=== PATIENT | female | born 1960 | race Caucasian/White ===

== ENCOUNTER → 2020-07-04 12:53 | Outpatient (CLI) | payer BC, SELFPAY ==
--- NOTE | ~2020-07-04 | US_ITS ---
EXAMINATION: US thyroid DATE: 07/04/2020 13:16 INDICATION: Nontoxic single thyroid nodule TECHNIQUE: Multiple ultrasound images of the thyroid were obtained. COMPARISON: None. FINDINGS: The right thyroid lobe measures 2.9 x 1.3 x 0.9 cm. The left thyroid lobe measures 4.0 x 1.5 x 1.1 c m. Thyroid isthmus measures 4 mm in thickness. Diffuse heterogeneous decreased echogenicity with coar sened echotexture and normal vascular flow on color Doppler throughout the thyroid. No discrete nodul es identified. IMPRESSION: 1. Small thyroid with coarsened echotexture which could represent sequela of chronic thyroiditis. No thyroid nodules. Reviewed, dictated and finalized at location . [facility] IMPRESSION: 1. Small thyroid with coarsened echotexture which could represent sequela of ch ronic thyroiditis. No thyroid nodules.
== END ==
PROVIDERS: Visit Provider Otolaryngology
DX: E04.1 Nontoxic single thyroid nodule (principal)
CPT/HCPCS: 76536

== ENCOUNTER 2020-09-24 11:24 | Emergency (ER) | payer BC, SELFPAY ==
--- NOTE | ~2020-09-24 | XR_ITS ---
XR femur LT min 2V DATE: 09/24/2020 12:32 INDICATION: Left thigh pain following a fall. Unable to straighten leg. TECHNIQUE: AP and lateral views of left femur COMPARISON: None FINDINGS: Osteitis pubis. Normal appearance of the sacroiliac joints. No fracture or dislocation, garcia scular necrosis or bone destruction of the left hip. No fracture, dislocation, periosteal reaction or bone destruction of the femur. IMPRESSION: Negative left femur Osteitis pubis Reviewed, dictated and finalized at location A. TIER
[2020-09-24 11:26] VITALS: BP 131/83; PULSE 76; RESP 18; TEMP 36.7; O2SAT 99
--- NOTE | 2020-09-24 11:42 | ED.LOWEXIN ---
HPI - Extremity Injury (Lower) General Chief Complaint: Extremity Injury, Lower Stated Complaint: left thigh pain s/p fall Time Seen by Provider: 09/24/20 11:26 Source: patient Mode of arrival: EMS Limitations: no limitations History of Present Illness HPI Narrative: This is a 60 year old female that presents to the ER for left leg pain after an injury today. Reports she slipped and fell, causing her to land in the splits . Reports since she has had pain in the left posterior thigh. Worse with movement and relieved with rest. Denies hitting her head, loss of consciousness, prodromal symptoms, other injuries, decreased range of motion, or numbness. Related Data Home Medications Medication Instructions Recorded Confirmed levothyroxine 75 mcg tablet 75 mcg PO DAILY 06/30/20 paroxetine HCl 20 mg tablet 20 mg PO DAILY 06/30/20 rosuvastatin 40 mg tablet 40 mg PO DAILY 06/30/20 Allergies Allergy/AdvReac Type Severity Reaction Status Date / Time No Known Allergies Allergy Verified 09/24/20 11:30 Review of Systems Review of Systems: Narrative: CONSTITUTIONAL: Denies fever MUSCULOSKELETAL: Reports myalgia. Denies back pain, joint pain NEUROLOGIC: Denies numbness, or weakness. All systems reviewed & are unremarkable except as noted in HPI and below PMFSH Past Medical History Medical History (Updated 09/24/20 @ 12:51 by Rani Bruno PA-C) History of gastroesophageal reflux (GERD) History of hyperlipidemia History of hypothyroidism Family History Family History (Updated 08/10/16 @ 13:55 by DOCTOR UNKNOWN) Mother Carcinoma of colon, Onset Age: 70 Family history of malignant neoplasm of breast in first degree relative Father Hypertension Other Family history of cardiovascular disease Social History Social History (Updated 06/30/20 @ 11:05 by Jaquelin Aguilar [facility]) Smoking status: Never smoker Second hand tobacco smoke exposure: No Alcohol intake: current Substance use: never Exam Narrative: Exam Narrative: GENERAL: Well-appearing, well-nourished, and in no acute distress. HEAD: Normocephalic, atraumatic. EYES: EOMI. ENT: Mucous membranes moist. Oropharynx without tonsillar hypertrophy exudate or other lesions. NECK: No midline spinal tenderness CHEST: Clear to auscultation. No respiratory distress. No wheezes rales or rhonchi HEART: Regular rate and rhythm. No murmur heard. Normal peripheral pulses. BACK: No midline spinal tenderness EXTREMITIES: Normal range of motion. No edema or obvious deformity. SKIN: Warm, dry, no rash. NEURO: No focal deficits. Alert and oriented x3. CN II-XII grossly intact PSYCH: Normal mood and affect Course Vital Signs Vital signs: Vital Signs Temperature 98.0 F 09/24/20 11:26 Pulse Rate 76 09/24/20 11:26 Respiratory Rate 18 09/24/20 11:26 Blood Pressure 131/83 09/24/20 11:26 Pulse Oximetry 99 09/24/20 11:26 Temperature 98.0 F 09/24/20 11:26 Pulse Rate 76 09/24/20 11:26 Respiratory Rate 18 09/24/20 11:26 Blood Pressure 131/83 09/24/20 11:26 Pulse Oximetry 99 09/24/20 11:26 MDM - Extremity Injury (Lower) MDM Narrative Medical decision making narrative: Patient presents the emergency department for left posterior thigh pain after a stretching injury from a fall today. Her x-ray is without acute osseous abnormalities. Patient was instructed on care of muscle strain. She is to follow-up with orthopedics. She was given warnings to return the ER Imaging Data Radiologist's impression: ITS Impressions Femur X-Ray 09/24/20 12:35 IMPRESSION: Negative left femur Osteitis pubis Critical Care Time Critical Care Time Critical Care Time: No Discharge Plan Discharge Clinical Impression: Strain of left hamstring muscle Qualifiers: Encounter type: initial encounter Qualified Code(s): S76.312A - Strain of muscle, fascia and tendon of the posterior muscle group at thigh level, left thigh
[2020-09-24] MEDS: KETOROLAC (*BKC) 60 MG/2 ML VIAL IM (11:50)
== END 2020-09-24 13:27 | disposition home or self-care (01) ==
PROVIDERS: Emergency Provider Emergency Medicine; Referring Provider Internal Medicine
DX: S76.312A Strain of muscle, fascia and tendon of the posterior muscle group at thigh level, left thigh, initial encounter (principal); K21.9 Gastro-esophageal reflux disease without esophagitis; E78.5 Hyperlipidemia, unspecified; E03.9 Hypothyroidism, unspecified; W01.0XXA Fall on same level from slipping, tripping and stumbling without subsequent striking against object, initial encounter
CPT/HCPCS: 73552; 96372; 99283; J1885

== ENCOUNTER 2021-11-24 08:51 | Outpatient (CLI) | payer BC, SELFPAY ==
--- NOTE | ~2021-11-24 | MM_ITS ---
EXAMINATION: MM screening emeka BI w rosemarie HISTORY: Screening TECHNIQUE: Craniocaudal and mediolateral oblique 3-D tomosynthesis images were obtained and synthetic 2-D images were generated. CAD analysis was submitted and interpreted. COMPARISON: Comparison to multiple prior studies sequentially, with oldest reviewed study dated 09/11. BREAST PARENCHYMAL COMPOSITION: There are scattered areas of fibroglandular density. FINDINGS: There is no evidence of suspicious mass, calcification, or architectural distortion to sugg est malignancy in either breast. There has been no suspicious interval change. IMPRESSION: 1. No mammographic evidence of malignancy. 2. Recommend routine screening mammography in one year. BI-RADS Category 1: Negative Reviewed, dictated and finalized at location A.
== END 2021-11-24 08:52 | disposition home or self-care (01) ==
PROVIDERS: Visit Provider Obstetrics & Gynecology
DX: Z12.31 Encounter for screening mammogram for malignant neoplasm of breast (principal)
CPT/HCPCS: 77063; 77067

== ENCOUNTER 2022-01-01 12:55 | Emergency (ER) | payer BC, SELFPAY ==
--- NOTE | 2022-01-01 13:05 | ED.URI ---
HPI - URI/Sore Throat General Chief Complaint: Upper Respiratory Infection Stated Complaint: COUGH/SORE THROAT/BODY ACHES/DRAINAGE Time Seen by Provider: 01/01/22 13:05 Source: patient and RN notes reviewed Mode of arrival: ambulatory Limitations: no limitations History of Present Illness HPI Narrative: 61-year-old female presented for complaint of cough, sore throat, sinus pressure and weakness, onset 2 days ago. She endorses headache started 2 nights ago. Denies wheezing, nausea, vomiting, diarrhea, fevers or chills. She is taking [id number] allergy relief medication for symptoms. She is vaccinated and boosted for COVID and flu. MD elicited complaint: cough and sore throat Related Data Home Medications Medication Instructions Recorded Confirmed levothyroxine 75 mcg tablet 75 mcg PO DAILY 06/30/20 paroxetine HCl 20 mg tablet 20 mg PO DAILY 06/30/20 rosuvastatin 40 mg tablet 40 mg PO DAILY 06/30/20 Allergies Allergy/AdvReac Type Severity Reaction Status Date / Time No Known Allergies Allergy Verified 09/24/20 11:30 Review of Systems Review of Systems: CONSTITUTIONAL: Endorses malaise EYES: Denies visual changes, redness, or discharge ENT: Reports rhinorrhea, congestion, sinus pain, sore throat CARDIOVASCULAR: Denies chest pain, palpitations, edema RESPIRATORY: Reports cough, post nasal drainage. Denies dyspnea GASTROINTESTINAL: Denies abdominal pain, nausea, vomiting, diarrhea SKIN: Denies rash or itching MUSCULOSKELETAL: Endorses myalgia NEUROLOGIC: Denies headache PMFSH Past Medical History Medical History History of gastroesophageal reflux (GERD) History of hyperlipidemia History of hypothyroidism Family History Family History Mother Carcinoma of colon, Onset Age: 70 Family history of malignant neoplasm of breast in first degree relative Father Hypertension Other Family history of cardiovascular disease Social History Social History Smoking status: Never smoker Second hand tobacco smoke exposure: No Alcohol intake: current Substance use: never Exam Narrative: GENERAL: Ill-appearing, nontoxic HEAD: Normocephalic EYES: conjunctivae clear ENT: Mucous membranes moist. TM pearly addison with dull light reflex bilaterally; no tragal tenderness. Oropharynx erythematous without lesions or exudate, no drooling, no hoarseness, no trismus, uvula midline. No tripod positioning, muffled voice, soft palate or pharyngeal wall bulging NECK: Supple. No lymphadenopathy CHEST: Frequent nonproductive cough lungs clear to auscultation, breath sounds equal. No respiratory distress, speaks in full sentences. HEART: Regular rate and rhythm. No murmur heard. SKIN: Warm, dry, no rash. NEURO: Alert and oriented x3. PSYCH: Normal mood and affect Course Course Emergency Course: Patient is aware of diagnosis, understands and agrees to treatment plan. Anticipatory guidance given. Patient agrees to follow-up as directed and is aware of reasons to seek care at the emergency department. Portions of this record may have been created with voice recognition software Level of Care: Express Care Visit Vital Signs Vital signs: Vital Signs Temperature 97.4 F L 01/01/22 13:15 Pulse Rate 104 H 01/01/22 13:15 Respiratory Rate 16 01/01/22 13:15 Blood Pressure 149/82 H 01/01/22 13:15 Pulse Oximetry 99 01/01/22 13:15 Temperature 97.4 F L 01/01/22 13:15 Pulse Rate 104 H 01/01/22 13:15 Respiratory Rate 16 01/01/22 13:15 Blood Pressure 149/82 H 01/01/22 13:15 Pulse Oximetry 99 01/01/22 13:15 reviewed MDM - URI/Sore Throat MDM Narrative Medical decision making narrative: Influenza positive, COVID-negative, strep negative. She is advised on supportive treatment. She is agreeable to Rx Tamiflu today and is margaret
[2022-01-01 13:15] VITALS: BP 149/82; PULSE 104; RESP 16; TEMP 36.3; O2SAT 99
== END 2022-01-01 13:36 | disposition home or self-care (01) ==
PROVIDERS: Emergency Provider Nurse Practitioner Family; PCP Hospitalist
DX: J10.1 Influenza due to other identified influenza virus with other respiratory manifestations (principal); K21.9 Gastro-esophageal reflux disease without esophagitis; E78.5 Hyperlipidemia, unspecified; E03.9 Hypothyroidism, unspecified; Z20.822 Contact with and (suspected) exposure to COVID-19
CPT/HCPCS: 87081; 87426; 87804; 87880; 99213; C9803; G0463

== ENCOUNTER 2023-09-21 02:13 | Day surgery (SDC) | payer BC, SELFPAY ==
[2023-08-30 13:35] VITALS: BMI 33.8
--- NOTE | 2023-09-19 13:03 | SUR.PREOP ---
Patient called regarding upcoming procedure. Pt updated on arrival date and time. All questions answered.
[2023-09-21 07:22] VITALS: BP 153/78; PULSE 99; RESP 20; TEMP 35.9; O2SAT 99
[2023-09-21] MEDS: LACTATED RINGERS 1,000 ML 150 ML IV CONT (07:46)
--- NOTE | 2023-09-21 08:20 | PM.HPGS ---
History of Present Illness History of Present Illness Consent: Risks, benefits, and alternatives have been discussed and questions answered. Patient agrees to proceed with procedure. Chief complaint: fam hx of colon ca Narrative: Leta Graves is a 63 year old female here for colonoscopy, last one 2017, mother had colon cancer Review of Systems Constitutional: Constitutional: Denies headache(s) and Denies weakness Eyes: Eyes: Denies blurry vision ENT: Reports Normal hearing present, Denies headache(s) and Denies neck pain Cardiovascular: Cardiovascular: Denies chest pain and Denies dyspnea Respiratory: Respiratory: Denies dyspnea Gastrointestinal: Gastrointestinal: Reports no additional gastrointestinal complaints Genitourinary: Genitourinary: Denies dysuria Musculoskeletal: Musculoskeletal: Denies neck pain Integumentary/Breasts: Skin/Breast: Denies dry skin Neurologic: Reports Normal hearing present, Denies headache(s) and Denies weakness Psychiatric: Psychiatric: Denies anxiety Endocrine: Endocrine: Denies change in body appearance Hematologic/Lymphatic: Hematologic/Lymphatic: Denies easy bleeding Allergic/Immunologic: Allergic/Immunologic: Denies urticaria PMFSH Past Medical History Medical History (Updated 09/21/23 @ 08:22 by Fernie Coello MD) Family history of colon cancer in mother History of gastroesophageal reflux (GERD) History of hyperlipidemia History of hypothyroidism Family History Family History Mother Carcinoma of colon, Onset Age: 70 Family history of malignant neoplasm of breast in first degree relative Father Hypertension Other Family history of cardiovascular disease Social History Social History Smoking status: Never smoker Second hand tobacco smoke exposure: No Alcohol intake: current Drinks per week: 2 Alcohol use details: GLASSES WINE Substance use: never Substance use type: does not use Living arrangements: with family Spiritual care concerns: No Meds Home Medications and Allergies Home Medications Medication Instructions Recorded Confirmed Type omeprazole 40 mg capsule,delayed 40 mg PO DAILY #14 caps 06/30/20 08/30/23 Rx release rosuvastatin 40 mg tablet 40 mg PO DAILY 06/30/20 08/30/23 History ezetimibe 10 mg tablet 10 mg PO DAILY 08/30/23 08/30/23 History levothyroxine 125 mcg tablet 125 mcg PO DAILY 08/30/23 08/30/23 History magnesium 1 tablet PO DAILY 08/30/23 08/30/23 History metoprolol tartrate 25 mg tablet 25 mg PO DAILY 08/30/23 08/30/23 History potassium 99 mg tablet 99 mg PO DAILY 08/30/23 08/30/23 History Allergies Allergy/AdvReac Type Severity Reaction Status Date / Time No Known Allergies Allergy Verified 09/21/23 07:20 Vital Signs Vital Signs - 24 hr 09/21/23 07:22 Temperature 96.7 F L Pulse Rate 99 Respiratory Rate 20 Blood Pressure 153/78 H Pulse Oximetry 99 Oxygen Delivery Room Air Exam Const: General: comfortable and no acute distress HENMT: Face/Nose/Sinus: Normal nares present Eyes: General: appearance normal, both eyes and all related structures Neck: Neck: no JVD Resp: Auscultation: clear to auscultation bilaterally Cardio: Rate: regular rate Rhythm: regular rhythm GI: Inspection: non-distended GI Palp: Yes Soft to palpation Skin: General skin exam: normal color Neuro: General: gait normal Speech: normal speech Extrem: General: normal to inspection Psych: Mental Status: mental status grossly normal Assessment and Plan Assessment and plan (1) Family history of colon cancer in mother: Code(s): Z80.0 - Family history of malignant neoplasm of digestive organs Status: Acute Assessment and Plan: colonoscopy
--- NOTE | 2023-09-21 08:24 | WPDANESEPPF ---
Anes - Initial Pre Proc Eval Procedure: Operation Date: 09/21/23 08:30 Proposed Procedures p Colonoscopy - Fernie Coello MD Date/Time: 09/21/23 08:24 Surgeon: Fernie Coello MD Pre Op Diagnosis: fam hx of colon ca Patient Data Age: 63 Gender: F Height: 1.57 m Weight: 85.5 kg Last Vital Signs Temp 96.7 F L 09/21/23 07:22 Pulse 99 09/21/23 07:22 Resp 20 09/21/23 07:22 BP 153/78 H 09/21/23 07:22 Pulse Ox 99 09/21/23 07:22 O2 Del Method Room Air 09/21/23 07:22 Allergies Allergy/AdvReac Type Severity Reaction Status Date / Time No Known Allergies Allergy Verified 09/21/23 07:20 Home Medications Medication Instructions Recorded Confirmed Type omeprazole 40 mg capsule,delayed 40 mg PO DAILY #14 caps 06/30/20 08/30/23 Rx release rosuvastatin 40 mg tablet 40 mg PO DAILY 06/30/20 08/30/23 History ezetimibe 10 mg tablet 10 mg PO DAILY 08/30/23 08/30/23 History levothyroxine 125 mcg tablet 125 mcg PO DAILY 08/30/23 08/30/23 History magnesium 1 tablet PO DAILY 08/30/23 08/30/23 History metoprolol tartrate 25 mg tablet 25 mg PO DAILY 08/30/23 08/30/23 History potassium 99 mg tablet 99 mg PO DAILY 08/30/23 08/30/23 History Patient hx anesthesia problems: none Family hx anesthesia problems: none Results Review: All pre-operative results and documents have been reviewed as part of the pre-operative evaluation. [facility] Past Medical History Medical History (Updated 09/21/23 @ 08:22 by Fernie Coello MD) Family history of colon cancer in mother History of gastroesophageal reflux (GERD) History of hyperlipidemia History of hypothyroidism Family History Family History Mother Carcinoma of colon, Onset Age: 70 Family history of malignant neoplasm of breast in first degree relative Father Hypertension Other Family history of cardiovascular disease Social History Social History Smoking status: Never smoker Second hand tobacco smoke exposure: No Alcohol intake: current Drinks per week: 2 Alcohol use details: GLASSES WINE Substance use: never Substance use type: does not use Living arrangements: with family Spiritual care concerns: No Anes - Eval Final PreProcedure Day of Procedure 09/21/23 08:24 Patient weight: obese Heart: regular rate and rhythm Lungs: clear to auscultation Airway: Mallampati scale class II Neurological: alert and oriented Last oral intake: >/= 8 hours ASA classification: III Emergent: no Anesthetic plan: proceed Anesthesia type and monitoring: general GIVS and standard monitoring Results Review: All pre-operative results and documents have been reviewed as part of the pre-operative evaluation. Informed Consent: The patient's anesthetic plan and its attendant risks and benefits were discussed with the patient/family/POA. Questions were solicited and answers provided to the satisfaction of the patient/family/POA.
[2023-09-21 08:49] VITALS: BP 95/49; PULSE 84; RESP 20; O2SAT 96
[2023-09-21 08:59] VITALS: BP 103/53; PULSE 82; RESP 18; O2SAT 96
[2023-09-21 09:09] VITALS: BP 105/63; PULSE 80; RESP 18; O2SAT 100
== END 2023-09-21 09:13 | disposition home or self-care (01) ==
PROVIDERS: PCP Internal Medicine; Referring Provider Obstetrics & Gynecology; Visit Provider Internal Medicine Gastroenterology
PROC: 0DJD8ZZ Inspection of Lower Intestinal Tract, Via Natural or Artificial Opening Endoscopic (ICD-10-PCS; CPT 45378; principal; 2023-09-21 08:30)
DX: Z12.11 Encounter for screening for malignant neoplasm of colon (principal); K57.30 Diverticulosis of large intestine without perforation or abscess without bleeding; K64.8 Other hemorrhoids; Z80.0 Family history of malignant neoplasm of digestive organs; E03.9 Hypothyroidism, unspecified; E78.5 Hyperlipidemia, unspecified; E66.9 Obesity, unspecified; Z68.34 Body mass index [BMI] 34.0-34.9, adult
CPT/HCPCS: 45378; J2704; J7120

== ENCOUNTER 2024-05-12 10:39 | Emergency (ER) | payer BC, SELFPAY ==
[2024-05-12 10:58] VITALS: BP 121/75; PULSE 97; RESP 16; TEMP 36.2; O2SAT 98
--- NOTE | 2024-05-12 11:14 | ED.GENADULT ---
HPI - General Adult General Chief complaint: Upper Respiratory Infection Stated complaint: headache, body ache, throat pain Time Seen by Provider: 05/12/24 11:14 Source: patient Mode of arrival: ambulatory Limitations: no limitations History of Present Illness HPI narrative: 64-year-old female patient presents to the [facility] with complaints of cold symptoms that started yesterday. Patient states she has had congestion, runny nose, sore throat, severe fatigue and a cough. Patient denies any fevers. Patient states she has been taking [id number] cough medicine and ibuprofen for her symptoms. Denies any chest pain or shortness of breath. Denies any abdominal pain, nausea, vomiting or diarrhea. Related Data Home Medications Medication Instructions Recorded Confirmed rosuvastatin 40 mg tablet 40 mg PO DAILY 06/30/20 05/12/24 ezetimibe 10 mg tablet 10 mg PO DAILY 08/30/23 05/12/24 levothyroxine 125 mcg tablet 125 mcg PO DAILY 08/30/23 05/12/24 magnesium 1 tablet PO DAILY 08/30/23 05/12/24 metoprolol tartrate 25 mg tablet 25 mg PO BID 08/30/23 05/12/24 aspirin 81 mg chewable tablet 81 mg PO DAILY 05/12/24 05/12/24 estradiol 0.01% (0.1 mg/gram) See Rx Instructions .Route .COMPLEX 05/12/24 05/12/24 vaginal cream evolocumab 140 mg/mL subcutaneous See Rx Instructions .Route .COMPLEX 05/12/24 05/12/24 syringe (Repatha Syringe) omeprazole 40 mg capsule,delayed 20 mg PO DAILY 05/12/24 05/12/24 release Allergies Allergy/AdvReac Type Severity Reaction Status Date / Time No Known Allergies Allergy Verified 05/12/24 10:44 Review of Systems Review of Systems: CONSTITUTIONAL: Denies fever, chills, or sweats. positive fatigue EYES: Denies visual changes, redness, or discharge. ENT: Positive rhinorrhea, congestion, sore throat, denies otalgia. CARDIOVASCULAR: Denies chest pain, palpitations, or edema. RESPIRATORY: positive cough denies dyspnea. GASTROINTESTINAL: Denies abdominal pain, nausea, vomiting, or diarrhea. GENITOURINARY: Denies dysuria or hematuria. SKIN: Denies rash or itching. MUSCULOSKELETAL: Denies back pain, joint pain, or myalgia. NEUROLOGIC: Denies headache, numbness, or weakness. PSYCHIATRIC: Denies anxiety or depression. [facility] Past Medical History Medical History Family history of colon cancer in mother History of gastroesophageal reflux (GERD) History of hyperlipidemia History of hypothyroidism Family History Family History Mother Carcinoma of colon, Onset Age: 70 Family history of malignant neoplasm of breast in first degree relative Father Hypertension Other Family history of cardiovascular disease Social History Social History Smoking status: Never smoker Second hand tobacco smoke exposure: No Alcohol intake: current Drinks per week: 2 Alcohol use details: GLASSES WINE Substance use: never Substance use type: does not use Living arrangements: with family Spiritual care concerns: No Comments At the time of my signature I agree with nursing past medical history, surgical, social, and family history. There is no relevant family history pertinent to the presenting complaint. Exam Narrative: GENERAL: ill-appearing, well-nourished, and in no acute distress. HEAD: Normocephalic, atraumatic. EYES: PERRLA and EOMI. ENT: Nares with erythema edema noted bilaterally, no rhinorrhea or epistaxis. Mucous membranes moist. posterior pharynx no erythema, tonsillar enlargement, exudates or lesions present. Bilateral TMs are clear no erythema or foreign bodies the canal. NECK: Supple. No lymphadenopathy CHEST: Clear to auscultation. No respiratory distress. HEART: Regular rate and rhythm. No murmur heard. Normal peripheral pulses. ABDOMEN: Soft, nontender, nondistended, normal active bowel sounds. EXTR
[2024-05-12 11:19] LABS: EDCOVIDSCREEN Negative (Negative); EDINFLUASCREEN Negative (Negative); EDINFLUBSCREEN Negative (Negative); EDSTREPNEGPOS1 Negative (Negative)
== END 2024-05-12 11:21 | disposition home or self-care (01) ==
PROVIDERS: Emergency Provider Nurse Practitioner Family
DX: J06.9 Acute upper respiratory infection, unspecified (principal); R05.9 Cough, unspecified; Z20.822 Contact with and (suspected) exposure to COVID-19; K21.9 Gastro-esophageal reflux disease without esophagitis; E78.5 Hyperlipidemia, unspecified; E03.9 Hypothyroidism, unspecified
CPT/HCPCS: 87081; 87426; 87804; 87880; 99213; G0463

== ENCOUNTER 2024-06-24 09:54 | Emergency (ER) | payer BC, SELFPAY ==
--- NOTE | 2024-06-24 10:09 | ED_ITS ---
HPI - Eye Problem General Chief complaint: Eye Problems Stated complaint: LT Eye Redness Time Seen by Provider: 06/24/24 10:20 Source: patient Mode of arrival: ambulatory Limitations: no limitations History of Present Illness HPI Narrative: Leta is a 64-year-old female patient presenting to the clinic today with complaints of left eye redness and swelling since yesterday. She reports she contacted [facility] and they place her on Augmentin and polymyxin eyedrops. Thinks she may have a stye in her eye. She reports that there is redness, swelling and itching around the eye with white purulent discharge. Denies any fever or chills. Denies any visual changes or eye pain at this time. Related Data Home Medications Medication Instructions Recorded Confirmed rosuvastatin 40 mg tablet 40 mg PO DAILY 06/30/20 06/24/24 ezetimibe 10 mg tablet 10 mg PO DAILY 08/30/23 06/24/24 levothyroxine 125 mcg tablet 125 mcg PO DAILY 08/30/23 06/24/24 magnesium 1 tablet PO DAILY 08/30/23 06/24/24 metoprolol tartrate 25 mg tablet 25 mg PO BID 08/30/23 06/24/24 aspirin 81 mg chewable tablet 81 mg PO DAILY 05/12/24 06/24/24 estradiol 0.01% (0.1 mg/gram) See Rx Instructions .Route .COMPLEX 05/12/24 06/24/24 vaginal cream evolocumab 140 mg/mL subcutaneous See Rx Instructions .Route .COMPLEX 05/12/24 06/24/24 syringe (Repatha Syringe) omeprazole 40 mg capsule,delayed 20 mg PO DAILY 05/12/24 06/24/24 release Allergies Allergy/AdvReac Type Severity Reaction Status Date / Time No Known Allergies Allergy Verified 06/24/24 10:13 Review of Systems Review of Systems: Pertinent positives per HPI. Patient denies any fever, chills, rash, headache, visual changes, dizziness, cough, shortness of breath, chest pain, palpitations, nausea, vomiting, diarrhea, constipation, abdominal pain, or any urinary issues. PMFSH Past Medical History Medical History Family history of colon cancer in mother History of gastroesophageal reflux (GERD) History of hyperlipidemia History of hypothyroidism Family History Family History Mother Carcinoma of colon, Onset Age: 70 Family history of malignant neoplasm of breast in first degree relative Father Hypertension Other Family history of cardiovascular disease Social History Social History Smoking status: Never smoker Second hand tobacco smoke exposure: No Alcohol intake: current Drinks per week: 2 Alcohol use details: GLASSES WINE Substance use: never Substance use type: does not use Living arrangements: with family Spiritual care concerns: No Comments At the time of my signature, I reviewed and agree with the nursing past medical, surgical, social, and family history. There is no relevant family history pertinent to the patient complaint. Exam Narrative: General: Well-developed, well nourished, in no apparent distress Head: Normocephalic, atraumatic Eyes: Pupils equally round and reactive to light bilaterally, EOM intact, right sclera and conjunctive clear, no discharge, lids normal, left sclera and conjunctiva injected with white mucopurulent discharge, internal stye noted at the upper inner eyelid, mild swelling and redness with tenderness to palpation without abscess to the periorbital area Ears: TMs intact and clear, ear canals clear, no drainage, grossly hearing normal. Nose: Nares patent, no discharge, no inflammation, no sinus tenderness. Mouth: Oral pharynx without lesions or masses, good dentition, MMM. Neck: Supple, trachea midline, no enlargement of anterior or posterior cervical nodes, no thyroid masses or goiter palpable. Cardio: Regular rate and rhythm, s1 and s2 normal, no murmur appreciated. Resp: Clear to auscultation bilaterally, no rhonchi, rales, wheezing or rubs Course Course Emergency Course: Portions of this record may have been created with voice recognition software. Level of Care: Express Care Visit Vital Signs Vital signs: Vital signs reviewed MDM - Eye Problem MDM Narrative Medical decision making narrative: At the time of visit patient is resting comfortably on the exam table. Patient appears to be nontoxic. Plan: I suspect patient has a stye to the left upper inner eyelid, conjunctivitis, periorbital swelling with mild tenderness. Recommend continue Augmentin and polymyxin eyedrops and I will add prednisone to help with swelling and itching. Encouraged to use warm/cool compresses. Supportive measures were discussed with the patient and they voiced understanding discharge instructions and agrees to treatment plan. Return precautions reviewed Differential Diagnosis Differential diagnosis: Likely corneal abrasion, conjunctivitis, acute iritis, hyphema, periorbital cellulitis, subconjunctival hemorrhage, glaucoma, corneal ulcer, ruptured globe and other (Stye) Discharge Plan Discharge Clinical Impression: Periorbital swelling Hordeolum Qualifiers: Hordeolum type: internum Laterality: left Eyelid: upper Qualified Code(s): H00.024 - Hordeolum internum left upper eyelid Conjunctivitis Qualifiers: Conjunctivitis type: acute Acute conjunctivitis type: unspecified Laterality: left Qualified Code(s): H10.32 - Unspecified acute conjunctivitis, left eye Patient Disposition: Home, Self-Care Condition: Stable Instructions: Antibiotic Form, Stye (ED), Periorbital Cellulitis (ED), Conjunctivitis (ED) Additional Instructions: Continue current medications as prescribed-polymyxin eyedrops and Augmentin Start prednisone as prescribed Apply cool/warm compresses to the eye every hour for 15-20 minutes at a time May continue taking Benadryl as needed for swelling/itching May take Tylenol/Motrin as needed for pain Go to the emergency room if symptoms worsen-increase in redness, swelling, eye pain, visual changes, fever, or any other concerning symptoms Follow-up with your eye doctor/PCP in 2 days for recheck Prescriptions: New prednisone 20 mg tablet 40 mg PO DAILY 5 Days Qty: 10 0RF No Action estradiol 0.01 % (0.1 mg/gram) cream See Rx Instructions .ROUTE .COMPLEX Rx Instructions: 1 g vaginally Repatha Syringe 140 mg/mL syringe See Rx Instructions .ROUTE .COMPLEX Rx Instructions: 140 mg subcutaneously every other week omeprazole 40 mg capsule,delayed release(DR/EC) 20 mg PO DAILY aspirin [Baby Aspirin] 81 mg Tablet,Chewable 81 mg PO DAILY rosuvastatin 40 mg tablet 40 mg PO DAILY levothyroxine 125 mcg tablet 125 mcg PO DAILY ezetimibe 10 mg tablet 10 mg PO DAILY metoprolol tartrate 25 mg tablet 25 mg PO BID magnesium Tablet 1 tablet PO DAILY Follow-up/Referrals: Jackie,Teodora Brown MD [Primary Care Provider] - Time of Disposition: 10:40 Quality NIHSS Nursing Documentation ED NIHSS nursing documentation: reviewed/agree
[2024-06-24 10:15] VITALS: BP 129/71; PULSE 76; RESP 16; TEMP 36.4; O2SAT 99
== END 2024-06-24 10:43 | disposition home or self-care (01) ==
PROVIDERS: Emergency Provider Nurse Practitioner Family; PCP Internal Medicine
DX: H00.024 Hordeolum internum left upper eyelid (principal); H10.32 Unspecified acute conjunctivitis, left eye; E03.9 Hypothyroidism, unspecified; E78.5 Hyperlipidemia, unspecified; Z79.899 Other long term (current) drug therapy; Z79.82 Long term (current) use of aspirin
CPT/HCPCS: 99213; G0463